=== PATIENT | female | born 1940 | race Hispanic/Latino ===

== ENCOUNTER → 2017-12-28 | Day surgery (SDC) | payer MEDICARE ==
[2017-12-26 12:19] LABS: BASOPHILS # (AUTO) 0.1 (0.0-0.1); BASOPHILS % 0.9 % (0.0-1.0); EOSINOPHILS # (AUTO) 0.2 (0.0-0.4); EOSINOPHILS % 2.2 % (0.0-6.0); HEMOGLOBIN 14.9 g/dL (12.0-16.0); LYMPHOCYTES # (AUTO) 2.1 (1.0-3.2); LYMPHOCYTES % 23.1 % (18.0-39.1); MEAN CORPUSCULAR HEMOGLOBIN 31.5 pg (28-32); MEAN CORPUSCULAR HGB CONC 33.1 g/dL (31-35); MEAN CORPUSCULAR VOLUME 95.1 fL (81-99); MONOCYTES # (AUTO) 0.6 (0.2-0.8); MONOCYTES % 7.1 % (4.4-11.3); NEUTROPHILS % 66.4 % (38.7-80.0); PLATELET COUNT 261 x10e3/uL (140-360); RED BLOOD COUNT 4.73 x10e6/uL (3.6-5.1); RED CELL DISTRIBUTION WIDTH 12.7 % (11.7-14.4)
[2017-12-26 12:42] LABS: ANION GAP 14.8 mmol/L (8-16); BLOOD UREA NITROGEN 25 mg/dL (7-26); BUN/CREATININE RATIO 31 (6-25); CARBON DIOXIDE 25 mmol/L (22-29); CHLORIDE 110 mmol/L (98-107); EST GLOMERULAR FILTRATION RATE > 60 ML/MIN (60-); GLUCOSE 105 mg/dL (74-118); POTASSIUM 4.8 mmol/L (3.5-5.1); SODIUM 145 mmol/L (136-145)
--- NOTE | 2017-12-26 13:08 | Diagnostic Imaging Report ---
PROCEDURE: Frontal and lateral views of the chest. COMPARISON: Chest 2 views 05/17/2016. INDICATIONS: PRE OPERATIVE CHEST X-RAY FOR KNEE SURGERY FINDINGS: Lines/tubes: None. Lungs: The lungs are well inflated and clear. There is no evidence of pneumonia or pulmonary edema. Pleura: There is no pleural effusion or pneumothorax. Heart and mediastinum: The heart and the mediastinum are normal. Bones: No acute bony abnormality. Degenerative changes of the thoracic spine. IMPRESSION: No acute radiographic abnormality. Dictated by: Puma Rollins M.D. on 12/26/2017 at 13:09 Electronically approved by: Puma Rollins M.D. on 12/26/2017 at 13:09
[~2017-12-28] MED LIST: ACTOS PO; ASPIR 8181 MG PO; BUPIVACAINE 0.5%/EPI 30 ML SDV INJ ONE; CEFAZOLIN SOD 2 GM/D5W 50ML 50 ML IV ONE; DEXAMETHASONE SOD PHOS INJ 4 MG/ML VIAL ONE; FENTANYL CITRATE/PF 100MCG/2 ML INJ ONE; FISH OIL OMEGA1 EACH PO; GARLIC1 EACH PO; IBUPROFEN400 MG PO; LANTUS100 UNITS/ SQ; LIDOCAINE HCL 2% LOCAL INJ 5 ML SDV VIAL INJ ONE; LISINOPRIL-HCT1 EAC1 PO; MIDAZOLAM HCL 2 MG/2 ML VIAL ONE; NEURONTIN100 MG PO; OMEPRAZOLE20 M1 PO; ONDANSETRON HCL INJ 2 MG/ML VIAL ONE; PROBIOTIC & AC1 EACH PO; PROPOFOL IV EMULSION 10 MG/ML 20 ML VIAL ONE; SEVOFLURANE INHAL SOLN 250 ML PEN BTL ONE; SIMVASTATIN20 MG PO; TOUJEO SC; VITAMIN B12 PO; VITAMIN D32000 UNIT PO
--- OUTSIDE RECORDS SUMMARY | 2017-12-28 09:53 | XMS REPORT ---
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 Allergies, Adverse Reactions, Alerts This patient has no known allergies or adverse reactions. Medications This patient has no known medications. Results Test Description Test Time Test Comments Text Results Atomic Results Result Comments CHEST 2 VIEWS [place] [address] Patient Name: LEE SMITH MR #: [id number] : 1940 Age/Sex: 77/F Req #: [id number] Adm Physician: Ordered by: MADAY ESCAMILLA MD Report #: [id number] Location: OR Room/Bed: Procedure: [id number] DX/CHEST 2 VIEWS Exam Date: 12/26/17 Exam Time: 1245 REPORT STATUS: Signed PROCEDURE: Frontal and lateral views of the chest. COMPARISON: Chest 2 views 05/17/2016. INDICATIONS: PRE OPERATIVE CHEST X-RAY FOR KNEE SURGERY FINDINGS: Lines/tubes: None. Lungs: The lungs are well inflated and clear. There is no evidence of pneumonia or pulmonary edema. Pleura: There is no pleural effusion or pneumothorax. Heart and mediastinum: The heart and the mediastinum are normal. Bones: No acute bony abnormality. Degenerative changes of the thoracic spine. IMPRESSION: No acute radiographic abnormality. Dictated by: Kiara Rollins M.D. on 12/26/2017 at 13:09 Electronically approved by: Kiara Rollins M.D. on 12/26/2017 at 13:09 Dictated By: KIARA ROLLINS MD [id number] COPY TO: MADAY ESCAMILLA MD
--- NOTE | 2017-12-29 03:05 | Operative Report ---
DATE OF PROCEDURE: December 28, 2017 PREOPERATIVE DIAGNOSES 1. Right knee medial meniscus tear. 2. 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 POSTOPERATIVE DIAGNOSES 1. Right knee medial meniscus tear. 2. Right knee lateral meniscus tear. 3. Right knee degenerative joint disease of the knee. OPERATIONS/PROCEDURES PERFORMED: Patient underwent 1. Right knee exam under anesthesia. 2. Right knee arthroscopy. 3. Right knee partial medial meniscectomy. 4. Right knee partial lateral meniscectomy. 5. Right knee chondroplasty of patella, the trochlea, the medial femoral condyle, and medial plateau, the lateral femoral condyle, the lateral notch. MANAGER PHOTOGRAPHY: None. ANESTHESIA: General endotracheal intubation anesthesia. IV FLUIDS: Per anesthesia record. BRIEF DESCRIPTION OF OPERATIVE PROCEDURE: Ms. Srivastava was taken to the operating room, placed in supine position on operating table. Following induction of general anesthesia, as well as endotracheal intubation, the patient's right lower extremity was examined under anesthesia. She was found to have a mild effusion within the knee joint but, otherwise, ligamentously stable knee. The patient's lower extremity was prepped and draped in standard surgical fashion. A 2-portal technique was used to provide this patient arthroscopic evaluation of the knee joint. Examination of the suprapatellar pouch, medial and lateral gutters found no evidence of loose bodies. There was, however, evidence of chondromalacia of the patellar and trochlear surfaces. Scope was advanced in medial compartment. Examination of medial compartment demonstrated a large parrot beak-type tear of the medial meniscus. There was also chondromalacia of articulating surfaces. A combination of biting forceps and a motorized shaver were used to resect the torn portion of meniscus. Chondroplasties of the medial femoral condyle and medial tibial plateau was performed at this time. Scope was then advanced to the intercondylar notch. The anterior and cruciate ligament was identified and found to be intact. Scope was then advanced into the lateral compartment. There was a tear in the posterior horn and the lateral meniscus. There was also chondromalacia of articulating surfaces. A combination of biting forceps and motorized shaver was used to the torn portion of meniscus. Chondroplasties of the lateral femoral condyle, lateral tibial plateau were performed at this time. The scope was then placed in suprapatellar pouch and chondroplasty of patella and trochlea performed. The knee was then inflated with sterile normal saline. The portal sites were closed using 4-0 nylon suture. Portal sites were also, itself, injected with 0.5% Marcaine with epinephrine. Sterile dressings were applied and the patient was then awakened, taken to postanesthesia care unit in stable condition. Job#: [id number] CQ
== END | disposition home or self-care (01) ==
LOC: OR 09:51
PROVIDERS: ATTEND Specialist
DX: S83.221A Peripheral tear of medial meniscus, current injury, right knee, initial encounter (principal); S83.281A Other tear of lateral meniscus, current injury, right knee, initial encounter; M22.41 Chondromalacia patellae, right knee; M17.0 Bilateral primary osteoarthritis of knee; E11.9 Type 2 diabetes mellitus without complications; I45.10 Unspecified right bundle-branch block; K21.9 Gastro-esophageal reflux disease without esophagitis; G62.9 Polyneuropathy, unspecified; R05 Cough; X58.XXXA Exposure to other specified factors, initial encounter; Z01.810 Encounter for preprocedural cardiovascular examination; Z01.812 Encounter for preprocedural laboratory examination; Z01.818 Encounter for other preprocedural examination; Z79.4 Long term (current) use of insulin; Z68.41 Body mass index [BMI] 40.0-44.9, adult
CPT/HCPCS: 29880; 36415; 71046; 80048; 85025; 93005; J1100; J2001; J2250; J2405

== ENCOUNTER 2020-06-03 12:43 | Emergency (ER) | payer MEDICARE ==
[~2020-06-03] VITALS: Ht 160 cm; Wt 96.6 kg
[~2020-06-03 12:43] MED LIST changes: -BUPIVACAINE 0.5%/EPI 30 ML SDV INJ ONE; -CEFAZOLIN SOD 2 GM/D5W 50ML 50 ML IV ONE; -DEXAMETHASONE SOD PHOS INJ 4 MG/ML VIAL ONE; -FENTANYL CITRATE/PF 100MCG/2 ML INJ ONE; -LIDOCAINE HCL 2% LOCAL INJ 5 ML SDV VIAL INJ ONE; -MIDAZOLAM HCL 2 MG/2 ML VIAL ONE; -ONDANSETRON HCL INJ 2 MG/ML VIAL ONE; -PROPOFOL IV EMULSION 10 MG/ML 20 ML VIAL ONE; -SEVOFLURANE INHAL SOLN 250 ML PEN BTL ONE
--- OUTSIDE RECORDS SUMMARY | 2020-06-03 13:22 | XMS REPORT | Continuity of Care Document ---
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 subchondral edema along the inferior lateral patellar facet. Partial-thickness chondrosis along the lateral trochlea is noted. Bone: Foci of subchondral edema and cyst formation are noted within the medial and patellofemoral compartments. There are no fractures. There are no bone marrow replacing lesions. Soft tissues: There is a small to moderate-sized knee effusion with fluid decompressing along the popliteus tendon sheath. There is minimal fluid within a Veloz's cyst. IMPRESSION: 1. Horizontal flap tear involving the kathy dy of the right knee medial meniscus with small meniscal flap displaced along the medial meniscotibial recess. 2. Moderate medial, moderate patellofemo ral, and mild lateral compartment chondrosis of the right knee as described in detail above, including deep partial thickness chondrosis along the mesial aspect of the medial femoral condyle and matching medial tibial rim within the medial compartment and deep partial thickness chondrosis of the patellar median ridge at the superior pole of the patella, deep partial thickness chondrosis of the lateral patellar facet, and partial-thickness chondrosis of the lateral trochlea within the patellofemoral compartment. 3. Small to moderate-sized right knee ef fusion. 4. Minimal fluid within a right knee Fern er's cyst. 5. Intact right knee cruciate and collat eral ligaments. 03/10/2016 [facility] [place] Knee wo contrast MRI EXAMINATI ON: MRI of the left knee without contrast. HISTORY: S83.242A Other tear of medial meniscus, current injury, left knee, initial encounter; left knee medial meniscus tear FINDINGS: Radiographs dated 11/04/2009 are reviewed. Multiplanar, multisequence magnetic resonance imaging of the left knee is performed with an extremity coil without contrast. Menisci: Medial: There is a complex tear with both radial and horizontal components involving the anterior horn, body, and posterior horn of the medial meniscus. The anteromedial aspect of the medial meniscus is completely extruded within the gutter. Lateral: The anterior horn, body, and posterior horn are intact. Ligaments: The cruciate and collateral ligaments are intact. Extensor mechanism: The extensor mechanism is intact. Muscles: There is normal signal intensity and muscle bulk of the musculature at the knee. Cartilage: Within the medial compartment, there is high-grade, near full- thickness to full-thickness chondrosis along the weightbearing medial femoral condyle and matching medial tibial plateau with multiple foci of subchondral edema. High-grade chondrosis also extends along the far posterior flexion zone of the medial femoral condyle. Within the lateral compartment, there is deep partial thickness chondrosis along the mesial aspect of the lateral femoral condyle with near full-thickness chondrosis at the junction of the posterior weightbearing and far posterior flexion zone of the lateral femoral condyle. There is also deep partial thickness chondrosis along the mesial aspect of the lateral tibial plateau with underlying subchondral cyst formation. Within the patellofemoral compartment, there is deep partial thickness chondrosis along the medial trochlea with partial thickness chondrosis of the central trochlea. Bone: Foci of subchondral edema are noted within the medial compartment. There are no fractures. There are no bone marrow replacing lesions. Soft tissues: There is a moderate sized knee effusion with fluid decompressing along the popliteus tendon sheath. There is minimal fluid within a Veloz's cyst. IMPRESSION: 1. Complex tear with both radial and hor izontal components involving the left knee medial meniscus with extrusion of the anteromedial aspect of the medial meniscus within the gutter. 2. Severe medial, mild to moderate later al, and mild patellofemoral compartment chondrosis of the left knee as described in detail above, most severe within the medial compartment with near full-thickness to full-thickness chondrosis along the weightbearing medial femoral condyle and matching medial tibial plateau with multiple foci of subchondral edema. 3. Moderate size left knee effusion. 4. Minimal fluid within a left knee Bake r's cyst. 5. Intact left knee cruciate and collate ral ligaments. 03/10/2016 MARTINEZ Chowdhury Bone Density [employer] MA - Bone Density [employer] MA BONE DENSITY EVALUATION: 01/13/2016 CLINICAL DATA: Post menopausal. FINDINGS: Bone density evaluation was performed 01/13/2016 on the AP L1-L4 region of spine using a Hologic unit. The BMD average for the exam is 0.974 g/cm2. The T-score is -0.70 and the Z-score is 1.70. This matches the World Health Organization's criteria for normal bone density and places the patient within normal limits of fracture risk. An additional bone density evaluation was performed 01/13/2016 on the right femur neck using a Hologic unit. The BMD average for the exam is 0.870 g/cm2. The T-score is 0.20 and the Z-score is 1.90. This matches the World Health Organization's criteria for normal bone density and places the patient within normal limits of fracture risk. An additional bone density evaluation was performed 01/13/2016 on the right hip using a Hologic unit. The BMD average for the exam is 1.074 g/cm2. The T-score is 1.10 and the Z-score is 2.50. This matches the World Health Organization's criteria for normal bone density and places the patient within normal limits of fracture risk. An additional bone density evaluation was performed 01/13/2016 on the left femur neck using a Hologic unit. The BMD average for the exam is 0.933 g/cm2. The T- score is 0.80 and the Z-score is 2.50. This matches the World Health Organization's criteria for normal bone density and places the patient within normal limits of fracture risk. An additional bone density evaluation was performed 01/13/2016 on the left hip using a Hologic unit. The BMD average for the exam is 1.084 g/cm2. The T-score is 1.20 and the Z-score is 2.60. This matches the World Health Organization's criteria for normal bone density and places the patient within normal limits of fracture risk. IMPRESSION: BONE DENSITY WITHIN NORMAL LIMITS Patient is at normal risk for fracture. This exam was dictated and interpreted by [id number] for MARTINEZ Chowdhury. Thomas Carrillo M.D., cm/beverly:01/14/2016 13:30:11 Conference Services Manager: Anamaria Weller RT(R)(M), [facility] 01/13/2016 [facility] Pelvis w Pelvis Transvaginal US EXAM: Pelvic ultrasound. INDICATION: Pelvic pain. TECHNIQUE: Grayscale and Doppler sonogram of the pelvis. Transabdominal technique was used. Transvaginal technique was used for better evaluation of the pelvic viscera. COMPARISON: 07/19/2013 pelvic ultrasound. FINDINGS: Uterus: Surgically absent. Right ovary: Not identified. Left ovary: Identified. Other: Free fluid: None. Adnexa: No mass. IMPRESSION: 1. Surgically absent uterus. 2. Nonvisualization of the ovaries. 01/13/2016 JULIAN Chowdhury Ribs unilateral 3 views w PA chest DX LEFT RIB SERIES, 4 VIEWS, WITH AP CHEST. INDICATION: Nontraumatic lower left rib pain. No fracture or other acute osseous abnormality is seen. There is moderate thoracic spondylosis. The frontal image of the chest demonstrates no acute abnormality or change from 10/25/2014. SL: 12 09/26/2015 [facility] Spine thoracic 2 views DX [facility] SPINE, 3 VIEWS. INDICATION: Upper back pain radiating to left ribs, no trauma. There is mild dextroscoliosis and kyphosis. No compression fracture is evident. Marginal osteophytes are noted at multiple levels. Pedicles and paraspinal soft tissues are intact. IMPRESSION: No acute abnormality. Moderate spondylosis. SL: 12 09/26/2015 [facility] Digital Mammo Screening Carl MA - DIGITAL MAMMO SCREENING CARL [place] BILATERAL DIGITAL SCREENING MAMMOGRAM WITH CAD: 09/12/2015 CLINICAL: Routine. Current study was evaluated with a Computer Aided Detection (CAD) system. Comparison is made to exams dated: 07/19/2013 mammogram, 09/23/2011 mammogram, 01/02/2010 mammogram, 12/04/2008 mammogram and 03/17/2004 mammogram - [facility]. The tissue of both breasts is heterogeneously dense, which could obscure detection of small masses. There are benign densities in both breasts. There also are benign scattered calcifications in both breasts. No significant masses, calcifications, or other findings are seen in either breast. There has been no significant interval change. IMPRESSION: BENIGN There is no mammographic evidence of malignancy. A 1 year screening mammogram is recommended. Brie Stover M.D. kg/penrad:09/12/2015 17:36:09 Conference Services Manager: Anamaria DALEY)(Alessandra), [facility] This exam was dictated and interpreted by [id number] for [place]. letter sent: Normal exam Mammogram BI-RADS: 2 Benign 09/12/2015 [facility] Chest 2 views CHEST RADIOGRAPH Y CLINICAL HISTORY: 401 essential hypertension COMPARISON IMAGIN10/13/2014 FINDINGS: Two views of the chest were acquired and submitted for evaluation. No pleural fluid is identified. The contour of the cardiac silhouette is within normal limits. There is no significant pulmonary consolidation or nodularity. Degenerative changes of the spine noted. IMPRESSION: Stable examination of the chest without acute cardiopulmonary abnormality. 10/25/2014 [facility] Spine cervical series DX EXAM: CERVICAL SPINE 5 VIEWS DATE: Oct 13, 2014 02:43:00 PM INDICATION: Trauma COMPARISON: None available TECHNIQUE: AP, open-mouth odontoid, bilateral oblique and lateral radiographs of the cervical spine show from the skull base through C7. FINDINGS: Vertebral body heights and disk heights are maintained. Cervical spine alignment is maintained. Mild narrowing of the right C4-C5 neural foramen is seen. Small anterior osteophyte formation is seen at C5-C6. No prevertebral or paraspinous soft tissue abnormality is identified. IMPRESSION: No fracture or malalignment. SL: 10/13/2014 [facility] Chest 2 views EXAM: Chest 2 vi ews DATE: Oct 13, 2014 01:45:00 PM INDICATION: Trauma COMPARISON: Chest x-ray 12/07/2013. TECHNIQUE: PA and lateral chest radiographs. FINDINGS: Bilateral lungs are clear No pleural effusions or pneumothorax are identified. . The cardiac silhouette is not enlarged. The aorta is tortuous and mildly ectatic. The skeleton is intact. Anterior thoracic spine osteophytes are present. . A radiopaque density is partially seen in overlying left lower abdomen, not seen on lateral view, is likely external to the patient.. IMPRESSION: No acute intrathoracic abnormality SL: 10/13/2014 [facility] Brain wo contrast CT CT HEAD W ITHOUT CONTRAST HX: Hemihypesthesia FINDINGS: Views of the brain show no evidence of intracranial hemorrhage, acute stroke, mass effect, or shift of midline structures. The ventricles and sulci are within normal limits of size. No abnormal extra-axial fluid collections are noted. Specifically, there is no evidence of diminished density in the region of the posterior limb of the internal capsule on either side. IMPRESSION: Negative CT of the brain without contrast. SL: 12 04/26/2014 [facility] Chest 2 views TWO VIEW CHEST INDICATION: Malignant essential hypertension COMPARISON: 2013 FINDINGS: Cardiac silhouette is within normal limits. Unremarkable aortic arch. Symmetric hardik. No lobar consolidation, pneumothorax, or pleural effusion. Thoracic spine degenerative changes. IMPRESSION: No acute cardiopulmonary process. 12/07/2013 [facility] [place] Digital Mammo Screening Carl MA - DIGITAL MAMMO SCREENING CARL MA BILATERAL DIGITAL SCREENING MAMMOGRAM WITH CAD: 07/19/2013 CLINICAL: Routine. Current study was evaluated with a Computer Aided Detection (CAD) system. Comparison is made to exams dated: 12/04/2008 mammogram, 01/02/2010 mammogram and 09/23/2011 mammogram - [facility]. There are scattered fibroglandular elements in both breasts that could obscure a lesion on mammography. No significant masses, calcifications, or other findings are seen in either breast. There has been no significant interval change. IMPRESSION: NEGATIVE There is no mammographic evidence of malignancy. A screening mammogram in one year is recommended. Dr. Pricila Mooney D.O. ht/beverly:07/24/2013 15:14:07 Conference Services Manager: Marilyn Rivera RT(R)(M), [facility] This exam was dictated and interpreted [facility] [id number] [facility] letter sent: Normal exam Mammogram BI-RADS: 1 Negative [facility] [place] Pelvis Transvaginal [facility] Exam: P elvic ultrasound. History: pelvic pain Comparison: None. Findings: Endovaginal sonographic evaluation of the pelvis. The patient is status post hysterectomy. The ovaries are not well-visualized. No adnexal masses are seen. No free fluid is visualized within the pelvis. Impression: 1. Status post hysterectomy. 2. Nonvisualization of the ovaries. 3. No adnexal masses and no free pelvic fluid. 07/19/2013 [facility] [place] Chest 2 views CHEST RADIOGRAPH Y CLINICAL HISTORY: 401.0 COMPARISON IMAGING: None. FINDINGS: Two views of the chest were acquired and submitted for evaluation. No pleural fluid is identified. The contour of the cardiac silhouette is within normal limits. There is no significant pulmonary consolidation or nodularity. Bones appear osteopenic. DEXA scan should be considered if not already performed. IMPRESSION: No acute cardiopulmonary abnormality. 2013 [facility] Stomach UGI (barium) UPPER GI EXAM CLINICAL HISTORY: Abdominal pain. TECHNIQUE: Double contrast exam with barium and air. FLUOROSCOPY TIME: Seven seconds. FINDINGS: Precontrast KUB demonstrates no significant abnormality. Contrast images of the upper GI tract show no esophageal mucosal abnormality. There is a small to moderate-sized hiatal hernia with moderate gastroesophageal reflux. The stomach is normal in configuration, contraction, and rugal pattern without evidence of peptic ulcer disease. Opacified small bowel is unremarkable. IMPRESSION: Small to moderate-sized hiatal hernia with moderate gastroesophageal reflux. 04/26/2013 [facility] Knee 3 views Right knee, 3 vie ws: CLINICAL HISTORY: Pain, Trauma Mild osteoarthritis. No acute fracture, dislocation, or focal osseous lesion is appreciated. Moderate soft tissue thickening inferiorly to the knee along the anterior margin of the proximal tibia. No knee joint effusion. SL:14 02/17/2013 [facility] Consultation Notes No Data Provided for This Section Discharge Summaries No Data Provided for This Section History and Physicals No Data Provided for This Section Vital Signs Vital Sign Value Date Comments Source Heart Rate 72 08/10/2016 [facility] Temperature Oral (F) 98 F 08/10/2016 [facility] Systolic (mm Hg) 115 08/10/2016 [facility] Diastolic (mm Hg) 62 08/10/2016 [facility] Respitory Rate 16 08/10/2016 [facility] Heart Rate 68 08/10/2016 [facility] Respitory Rate 17 08/10/2016 [facility] Systolic (mm Hg) 117 08/10/2016 [facility] Diastolic (mm Hg) 64 08/10/2016 [facility] Respitory Rate 16 08/10/2016 [facility] Heart Rate 74 08/10/2016 [facility] Systolic (mm Hg) 159 08/10/2016 [facility] Diastolic (mm Hg) 72 08/10/2016 [facility] Temperature Oral (F) 97.9 F 08/10/2016 [facility] Height 156 cm 08/10/2016 [facility] Weight 95.455 08/10/2016 [facility] BMI Calculated 39.22 08/10/2016 [facility] Temperature Oral (F) 97.5 F 09/26/2015 [facility] Systolic (mm Hg) 135 09/26/2015 [facility] Diastolic (mm Hg) 70 09/26/2015 [facility] Systolic (mm Hg) 136 09/26/2015 [facility] Diastolic (mm Hg) 72 09/26/2015 [facility] Respitory Rate 18 09/26/2015 [facility] Heart Rate 60 09/26/2015 [facility] Weight 95.455 09/26/2015 [facility] Height 154.94 cm 09/26/2015 [facility] Temperature Oral (F) 97.5 F 09/26/2015 [facility] Systolic (mm Hg) 154 09/26/2015 [facility] Diastolic (mm Hg) 84 09/26/2015 [facility] Respitory Rate 20 09/26/2015 [facility] Heart Rate 66 09/26/2015 [facility] BMI Calculated 39.76 09/26/2015 [facility] Heart Rate 81 10/13/2014 [facility] Respitory Rate 16 10/13/2014 [facility] Diastolic (mm Hg) 77 10/13/2014 [facility] Systolic (mm Hg) 144 10/13/2014 [facility] Temperature Oral (F) 98.0 F 10/13/2014 [facility] Weight 104.545 10/13/2014 [facility] Height 162.56 cm 10/13/2014 [facility] BMI Calculated 39.56 10/13/2014 [facility] Heart Rate 69 04/27/2014 [facility] Respitory Rate 16 04/27/2014 [facility] Systolic (mm Hg) 125 04/27/2014 [facility] Diastolic (mm Hg) 79 04/27/2014 [facility] Temperature Oral (F) 98.7 F 04/27/2014 [facility] Height 152.4 cm 04/27/2014 [facility] BMI Calculated 41.69 04/27/2014 [facility] Weight 96.818 04/27/2014 [facility] Respitory Rate 20 04/27/2014 [facility] Heart Rate 68 04/27/2014 [facility] Diastolic (mm Hg) 68 04/27/2014 [facility] Systolic (mm Hg) 135 04/27/2014 [facility] Temperature Oral (F) 98.2 F 04/27/2014 [facility] Height 165.1 cm 02/17/2013 [facility] Weight 109.091 02/17/2013 [facility] Encounters Location Location Details Encounter Type Encounter Number Reason For Visit Attending Provider ADM Date DC Date Status Source [facility] Emergency [id number] LEDY SRIDHAR 02/17/2013 02/17/2013 Discharged [facility] [place] [facility] [id number] _[id number] Fabio Cortez 12/07/2013 12/08/2013 [facility] [place] [facility] [id number] Ty Glass 04/27/2014 04/27/2014 [facility] [id number] Yvette Hand 10/13/2014 10/13/2014 [facility] [place] [facility] [id number] Fabio Cortez 10/25/2014 10/26/2014 [facility] [place] [facility] [place] [facility] [id number] Fabio Cortez 04/29/2015 05/29/2015 [facility] [place] [facility] [place] [facility] [id number] Fabio Cortez 09/12/2015 09/13/2015 [facility] [place] [facility] [id number] Ruddy Burgesssoff 09/26/2015 09/26/2015 [facility] [place] [facility] [id number] Dieter Foley 01/13/2016 01/14/2016 [facility] [place] [facility] [place] [facility] [id number] Hank Charles 03/10/2016 03/11/2016 [facility] [place] [facility] [id number] Marilyn Borges 08/10/2016 08/10/2016 [facility] [place] [facility] [id number] Brian Roach Ayestas 08/30/2017 08/31/2017 [facility] [place] [facility] [place] [facility] [id number] Hank Charles 12/12/2017 12/13/2017 [facility] [place] [facility] [place] [facility] [id number] 16 Brian Roach [place]est[place] 09/08/2018 09/09/2018 [facility] Chowdh[facility] [place] [facility] [id number] Brian Fierro 09/13/2019 09/14/2019 [facility] Chowdh[facility] Procedures No Data Provided for This Section Assessment and Plan No Data Provided for This Section Plan of Care No Data Provided for This Section Social History Social History Date Source Social History TypeResponse Smoking Status Never smoker; Type: Cigarettes; Exposure to Tobacco Smoke None; Cigarette Smoking Last 365 Days No; Reg Smoking Cessation Counseling No entered on: 09/26/15 09/26/2015 [facility] Social History TypeResponse Smoking Status Never smoker; Type: Cigarettes; Exposure to Tobacco Smoke None; Cigarette Smoking Last 365 Days No; Reg Smoking Cessation Counseling No 09/26/2015 [facility] Social History TypeResponse Smoking Status Never smoker; Type: Cigarettes; Exposure to Tobacco Smoke None; Cigarette Smoking Last 365 Days No; Reg Smoking Cessation Counseling No 10/13/2014 LACE[facility] Chowdhury Family History No Data Provided for This Section Advance Directives No Data Provided for This Section Functional Status No Data Provided for This Section
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
--- NOTE | 2020-06-03 13:28 | Emergency Department Note ---
History of Present Illnes History of Present Illness Chief Complaint: Flank Pain History of Present Illness This is a 79 year old female Chief Complaint Comment PATIENT IN FROM [facility] WITH COMPLAINTS OF LEFT FLANK PAIN OFF AND ON X 3 DAYS; STATES THE PAIN COMES AND GOES, DENIES PAIN AT THIS TIME. PATIENT DENIES NAUSEA, VOMITING, OR DIARRHEA. She has had this in the past and it resolved. She has not tried anything today. 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 Any updates have been documented here. Past Medical History Recent Fever: No Clinical Suspicion of Infectio: No New/Unexplained Change in Ment: No Past Medical History: Hypertension, Diabetes Other Medical History: DIABETIC NEUROPATHY Past Surgical History: Knee Replacement Social History Physically hurt or threatened: No Review of Systems Review of Systems Constitutional: Reports no symptoms EENTM: Reports no symptoms Cardiovascular: Reports no symptoms Respiratory: Reports no symptoms Gastrointestinal: Reports no symptoms Genitourinary: Reports no symptoms Musculoskeletal: Reports no symptoms, Reports back pain (L) Integumentary: Reports no symptoms Neurological: Reports no symptoms Psychological: Reports no symptoms Endocrine: Reports no symptoms Hematological/Lymphatic: Reports no symptoms Physical Exam Related Data Allergies: Coded Allergies: No Known Allergies (Unverified , 12/27/17) Triage Vital Signs Vital Signs Date Time Temp Pulse Resp B/P (MAP) Pulse Ox O2 Delivery O2 Flow Rate FiO2 06/03/20 13:08 97.5 76 20 170/57 98 Room Air Vital signs reviewed: Yes Physical Exam CONSTITUTIONAL Constitutional: Present well-developed, Present well-nourished HENT HENT: Present normocephalic, Present atraumatic, Present oropharynx clear/moist, Present nose normal HENT L/R: Present left ext ear normal, Present right ext ear normal EYES Eyes: Reports PERRL, Reports conjunctivae normal NECK Neck: Present ROM normal PULMONARY Pulmonary: Present effort normal, Present breath sounds normal CARDIOVASCULAR Cardiovascular: Present regular rhythm, Present heart sounds normal, Present capillary refill normal, Present normal rate GASTROINTESTINAL Abdominal: Present soft, Present nontender, Present bowel sounds normal GENITOURINARY Genitourinary: Present exam deferred SKIN Skin: Present warm, Present dry MUSCULOSKELETAL Musculoskeletal: Present ROM normal, Present tenderness (L paraspinal muscles) NEUROLOGICAL Neurological: Present alert, Present oriented x 3, Present no gross motor or sensory deficits PSYCHOLOGICAL Psychological: Present mood/affect normal, Present judgement normal Results Laboratory Lab results reviewed: Yes Assessment & Plan Medical Decision Making MDM 79-year-old female presents for left sided paraspinal pain. She states pain is made worse by moving. Examination shows point tenderness to the left paraspinal muscles. No midline tenderness, no trauma. She was given Toradol and Tylenol. Differential includes urinary tract infection versus kidney stones versus possible skeletal pain among others. Diagnosis favors musculoskeletal pain. She is instructed to take Tylenol and ibuprofen and follow up with primary care provider. Patient is appropriate for discharge. Reassessment Reassessment time: 13:26 Reassessment Well appearing, NAD Assessment & Plan Final Impression: (1) Back pain Depart Disposition: HOME, SELF-CARE Last Vital Signs Date Time Temp Pulse Resp B/P (MAP) Pulse Ox O2 Delivery O2 Flow Rate FiO2 06/03/20 13:08 97.5 76 20 170/57 98 Room Air Home Meds Active Scripts Naproxen (NAPROXEN) 250 Mg Tablet, 250 MG PO BID, #30 TAB Prov:BEAN BLUNT MD 06/03/20 Reported Medications Simvastatin (SIMVASTATIN) 20 Mg Tablet, 10 MG PO 2100, EA 12/27/17 Omeprazole (OMEPRAZOLE) 20 Mg Tablet.dr, 20 MG PO DAILY 12/27/17 [Actos] No Conflict Check, PO DAILY 12/27/17 [Toujeo] No Conflict Check, 40 UNITS SC HS 12/27/17 [Toujeo] No Conflict Check, 25 UNITS SC ACB 12/27/17 Gabapentin (NEURONTIN) 100 Mg Capsule, 100 MG PO HS, CAP 12/27/17 Lisinopril/Hydrochlorothiazide (LISINOPRIL-HCTZ 20-25 MG TAB) 1 Each Tablet, 1 TAB PO DAILY 05/17/16 BEAN BLUNT MD Jun 03, 2020 13:28
[2020-06-03] MEDS ORDERED: KETOROLAC TROMETHAMINE 30 MG/ML VIAL IM ONE (13:30)
[2020-06-03] MEDS ORDERED: ACETAMINOPHEN 325 MG TAB PO ONE (13:30)
[2020-06-03 14:37] LABS: CLARITY,URINE CLEAR (CLEAR); COLOR,URINE YELLOW (YELLOW); KETONES,URINE NEGATIVE (NEGATIVE); LEUKOCYTE ESTERASE ,URINE NEGATIVE (NEGATIVE); NITRITE,URINE NEGATIVE (NEGATIVE); PROTEIN,URINE DIPSTICK NEGATIVE (NEGATIVE)
[2020-06-03 14:38] LABS: BILIRUBIN,URINE NEGATIVE (NEGATIVE); URINE UROBILINOGEN 0.2 mg/dL (0.2 - 1)
[2020-06-03 14:42] LABS: BACTERIA,URINE FEW /HPF; EPITHELIAL CELLS,URINE MODERATE /LPF; RBC,URINE 0-5 /HPF (0-5); WBC,URINE (MAN) 0-5 /HPF (0-5)
[2020-06-03] MEDS ORDERED: NAPROXEN250 MG PO (14:46)
== END 2020-06-03 14:57 | disposition home or self-care (01) ==
LOC: ER 13:18
DX: M54.5 Low back pain (principal); I10 Essential (primary) hypertension; E11.40 Type 2 diabetes mellitus with diabetic neuropathy, unspecified
CPT/HCPCS: 81001; 99283; J1885